=== PATIENT | male | born 1995 | race Caucasian/White ===

== ENCOUNTER 2021-11-12 12:42 | Emergency (ER) | payer OTHER ==
[~2021-11-12] VITALS: Ht 185.4 cm; Wt 84.1 kg
[2021-11-12 12:49] VITALS: BP 128/75
[2021-11-12 15:59] LABS: COVID AG,FIA SOURCE NASOPHARYNGEAL
== END 2021-11-12 18:49 | disposition left against medical advice (07) ==
LOC: EMS 12:42
DX: I88.9 Nonspecific lymphadenitis, unspecified (principal); F17.210 Nicotine dependence, cigarettes, uncomplicated; Z20.822 Contact with and (suspected) exposure to COVID-19
CPT/HCPCS: 99283